=== PATIENT | female | born 1995 | race Caucasian/White ===

== ENCOUNTER 2018-12-28 08:58 | Emergency (ER) | payer OTHER ==
[~2018-12-28] VITALS: Ht 160 cm; Wt 89.2 kg
[2018-12-28] MEDS ORDERED: PREN1CHW6 PO (09:05)
[2018-12-28] MEDS ORDERED: LEVO175T2 PO (09:05)
[2018-12-28 10:14] LABS: BASO # 0.1 10^3/uL (0.0-0.2); BASO % 0.7 % (0.0-1.0); EOS # 0.1 10^3/uL (0.0-0.5); EOS % 0.6 % (0.0-3.0); HEMATOCRIT 39.4 % (36.0-47.0); HEMOGLOBIN 13.1 g/dl (12.0-15.5); LYMPH # 1.9 10^3/uL (1.5-5.0); LYMPH % 23.3 % (24.0-44.0); MEAN CORPUSCULAR HEMOGLOBIN 26.9 pg (27.0-33.0); MEAN CORPUSCULAR HGB CONC 33.2 g/dl (32.0-36.5); MEAN CORPUSCULAR VOLUME 80.9 fl (80.0-96.0); MONO # 0.5 10^3/uL (0.0-0.8); MONO % 6.2 % (0.0-5.0); NEUTROPHILS # 5.7 10^3/uL (1.5-8.5); PLATELET COUNT, AUTOMATED 197 10^3/uL (150-450); RED BLOOD COUNT 4.87 10^6/uL (4.00-5.40); WHITE BLOOD COUNT 8.3 10^3/uL (4.0-10.0)
--- NOTE | 2018-12-28 11:59 | REP ---
FIRST TRIMESTER ULTRASOUND: Real-time sonographic evaluation of the pelvis performed utilizing transabdominal and endovaginal technique. Uterus has a length of approximately 9.5 cm. There is a sac like structure in the endometrial canal measuring 6 mm in average diameter which would correspond to an estimated gestational age of 6 weeks 2 days. No yolk sac or pole is seen within the sac. No subchorionic hemorrhage is seen. Ovaries are normal in size and echotexture, right ovary measuring 3.6 x 3.2 x 3.0 cm and left ovary 3.0 x 2.1 x 2.0 cm. There is no adnexal mass or free fluid. There is no torsion with duplex Doppler evaluation. Differential diagnosis would include very early intrauterine , missed ab or ectopic . Suggest correlation with serial quantitive beta hCG values, and followup ultrasound as necessary. Electronically Signed by Lizandro Rivas MD 12/28/2018 04:40 P
[2018-12-28] MEDS ORDERED: RHOGAM 300 MCG (1500 IU) INJ (J2790) IM ONE (12:30)
[2018-12-28 13:59] VITALS: BP 118/72
[2018-12-28 14:56] LABS: CHLAMYDIA DNA AMPLIFICATION NEGATIVE (NEGATIVE); GC DNA AMPLIFICATION NEGATIVE (NEGATIVE)
== END 2018-12-28 14:00 | disposition home or self-care (01) ==
LOC: M ED 08:58
DX: O20.0 Threatened abortion (principal); O99.281 Endocrine, nutritional and metabolic diseases complicating pregnancy, first trimester; E03.9 Hypothyroidism, unspecified; Z79.890 Hormone replacement therapy; Z3A.01 Less than 8 weeks gestation of pregnancy
CPT/HCPCS: 36415; 76801; 76817; 81001; 84702; 85025; 86850; 86900; 86901; 87210; 87661; 93976; 96372; 99284; J2790

== ENCOUNTER → 2018-12-30 | Outpatient (CLI) | payer OTHER ==
[~2018-12-30] MED LIST: LEVO175T2 PO; PREN1CHW6 PO
== END ==
LOC: M LAB 10:02
PROVIDERS: ATTEND Emergency Medicine
DX: Z34.80 Encounter for supervision of other normal pregnancy, unspecified trimester (principal); Z3A.00 Weeks of gestation of pregnancy not specified

== ENCOUNTER → 2019-03-09 | Outpatient (REF) | payer OTHER ==
[~2019-03-09] MED LIST changes: +vitamin d
== END ==
LOC: M SFHCLERA 12:56
PROVIDERS: ATTEND Nurse Practitioner Family
DX: Z32.00 Encounter for pregnancy test, result unknown (principal)
CPT/HCPCS: 81025; 84702; G0463

== ENCOUNTER 2019-03-14 13:06 | Emergency (ER) | payer OTHER ==
[~2019-03-14] VITALS: Ht 157.5 cm; Wt 86.4 kg
[~2019-03-14 13:06] MED LIST changes: -vitamin d
[2019-03-14] MEDS ORDERED: vitamin d (13:19)
[2019-03-14 15:03] LABS: HEMATOCRIT 39.9 % (36.0-47.0); HEMOGLOBIN 13.1 g/dl (12.0-15.5); MEAN CORPUSCULAR HEMOGLOBIN 26.4 pg (27.0-33.0); MEAN CORPUSCULAR HGB CONC 32.8 g/dl (32.0-36.5); MEAN CORPUSCULAR VOLUME 80.4 fl (80.0-96.0); PLATELET COUNT, AUTOMATED 208 10^3/uL (150-450); RED BLOOD COUNT 4.96 10^6/uL (4.00-5.40); WHITE BLOOD COUNT 9.2 10^3/uL (4.0-10.0)
[2019-03-14] MEDS ORDERED: RHOGAM 300 MCG (1500 IU) INJ (J2790) IM ONE (16:15)
[2019-03-14 16:40] LABS: CHLAMYDIA DNA AMPLIFICATION NEGATIVE (NEGATIVE); GC DNA AMPLIFICATION NEGATIVE (NEGATIVE)
--- NOTE | 2019-03-14 17:05 | REP ---
PELVIC ULTRASOUND: Real-time sonographic evaluation of the pelvis performed utilizing transabdominal and endovaginal technique. The uterus measures 8.5 x 3.8 x 5.7 cm. Endometrial echo complex is heterogeneous. No gestational sac is seen. Endometrial thickness is 10 mm. Right ovary measures 4.2 x 1.9 x 1.9 cm and left ovary 4.2 x 2.5 x 3.5 cm. There is no torsion of either ovary with duplex Doppler evaluation. Trace free fluid is seen. Separate from the right ovary in the right adnexa, is a complex mass with a central cystic component. This measures 1.5 x 1.4 x 1.6 cm. This is suspicious for ectopic . Also noted posteriorly on the right is subserosal exophytic fibroid 3.8 x 3.3 x 3.5 cm. Nabothian cyst is seen in the region of the cervix 6 mm. IMPRESSION: Findings highly suspicious for ectopic in the right adnexa. Complex heterogeneous mass is seen separate from the right ovary with a maximum diameter of 1.6 cm. Endometrial thickness is 10 mm with no intrauterine gestational sac present. Endometrium is heterogenous with a tiny amount of fluid. There is trace free fluid in the right adnexa. Electronically Signed by Lizandro Rivas MD 03/18/2019 04:06 P
[2019-03-14 17:58] VITALS: BP 134/74
--- NOTE | 2019-03-14 20:07 | HPE ---
DATE OF ADMISSION: 03/14/2019 This lady was seen at the request of the emergency room physician. She is a 23-year-old 2, para 0, abortio 1, last menstrual period (LMP) was 02/03/2019. She was at an alternative hospital and had a quantitative beta hCG done which was 31 on 03/09/2019. She came in tonight because of dark brown discharge and occasional discomfort in her uterus. Her past history is in December of 2018, she had a spontaneous at 5 weeks, was looked after by [facility] and her quantitative beta hCGs (quants) were followed to zero. She is using nothing for control, has regular periods and attempted to get again. Evaluation today, her temperature is 96.5, pulse 86, blood pressure 110/69, respirations are 18, oxygen saturations are 100%. She has some brownish-type discharge in the vagina. Cervix is closed. Her quant - the beta hCG was 21. She had an ultrasound, transvaginal. The preliminary report suggested no intrauterine sac. She has a small exophytic fibroid 3.8 cm, right posterior wall, which could be causing her some uterine irritability. Separate from the ovary in the right adnexa, there is a 1.6 cm mass with cystic center, possibly suspicious for an ectopic . She has minimal to trace fluid in the cul-de-sac. On pelvic examination, she is not tender. No right or left upper or lower quadrant pain. She is presently not having any cramps and not having any discomfort. Our plan of management for this patient is to repeat her quantitative beta hCG in 48 hours to evaluate whether it is going down to zero or maintaining at 21 or going up. She is to come in 48 hours for a separate quantitative beta hCG to emergency and a consultation with the [facility] internal controls manager. She was counseled regarding acute left lower quadrant pain searing in nature to return immediately to the emergency room. She was also counseled to avoid intercourse or any strenuous activity for the next 24-48 hours. 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 She is at no risk if she goes back to work tomorrow. However, if there is any change in her physical findings, she is to immediately return to the emergency department. Both her and expressed understanding of the plan of care and to close loop, we will discuss this with Dr. Do who is the physician internal controls manager on Monday. The patient's cell number is [phone], and we made it available to her to have the emergency ASSIST[employer] Wheeler line to her so that she could call at any time. The patient and were satisfied. They did ask questions regarding seeing a fertility specialist because of recurring miscarriages; however, she does not fit the demographics of a spontaneous recurring miscarriage patient. She apparently feels that she cannot get past 5 weeks, and at the present time because of no intrauterine , previously documented intrauterine , she does not fit the model. However, we can revisit that issue once this issue is resolved. The patient left the emergency department with her requisition in hand.
== END 2019-03-14 18:00 | disposition home or self-care (01) ==
LOC: M ED 13:06
DX: O20.0 Threatened abortion (principal); O36.80X0 Pregnancy with inconclusive fetal viability, not applicable or unspecified; Z87.59 Personal history of other complications of pregnancy, childbirth and the puerperium; Z87.891 Personal history of nicotine dependence; Z3A.01 Less than 8 weeks gestation of pregnancy
CPT/HCPCS: 36415; 76801; 76817; 81001; 84702; 85027; 86850; 86870; 86900; 86901; 87086; 87210; 87661; 93976; 96372; 99283; J2790

== ENCOUNTER → 2019-03-16 | Outpatient (CLI) | payer OTHER ==
[~2019-03-16] MED LIST changes: +vitamin d
== END ==
LOC: M LAB 10:48
PROVIDERS: ATTEND Emergency Medicine
DX: N93.9 Abnormal uterine and vaginal bleeding, unspecified (principal)